=== PATIENT | male | born 1940 | race Caucasian/White ===

== ENCOUNTER → 2020-09-18 | Outpatient (CLI) | payer MEDICARE, BC | LOC: RAD 08:58 | DX: M19.012 Primary osteoarthritis, left shoulder (principal) ==

== ENCOUNTER 2020-11-18 11:42 | Emergency (ER) | payer MEDICARE, BC ==
[2020-11-18] MEDS ORDERED: NITROGLYCERIN0.4 M1 SL (12:00)
[2020-11-18] MEDS ORDERED: FERROUS SULFAT325 M4 PO (12:01)
[2020-11-18] MEDS ORDERED: FISH OIL1 IU PO (12:01)
[2020-11-18] MEDS ORDERED: BRILINTA90 MG PO (12:01)
[2020-11-18] MEDS ORDERED: ASPIRIN E.C. 8181 MG (12:01)
[2020-11-18] MEDS ORDERED: ATORVASTATIN CA40 MG PO (12:01)
[2020-11-18] MEDS ORDERED: PRINIVIL10 M1 PO (12:01)
[2020-11-18] MEDS ORDERED: MULTIPLE VITAMI1 TA1 PO (12:02)
[2020-11-18] MEDS ORDERED: METFORMIN HYD1000 MG PO (12:02)
[2020-11-18] MEDS ORDERED: LOPRESSOR 225 MG/TAB PO (12:03)
[2020-11-18] MEDS ORDERED: GOOD SENSE OMEP20 MG PO (12:03)
[2020-11-18] MEDS ORDERED: ACTOS 45MG45 MG/TAB PO (12:03)
[2020-11-18 12:31] LABS: POTASSIUM 4.3 mmol/L (3.5-5.1)
[2020-11-18 12:32] LABS: CALCIUM 8.8 mg/dL (8.3-10.5)
[2020-11-18 12:33] LABS: EOS # 0.1 (0.04-0.40); EOS % 0.9 % (0.0-4.0); HEMATOCRIT 35.2 % (42.0-52.0); HEMOGLOBIN 11.1 g/dL (13.5-18.0); LYMPH# 2.9 (1.50-4.00); MEAN CELL VOLUME 93 fl (78-100); MEAN CORPUSCULAR HEMOGLOBIN 29 pg (27-31); MEAN CORPUSCULAR HGB CONC 32 g/dL (33-37); MEAN PLATELET VOLUME 11.2 fl (7.4-10.4); MONO # 0.9 (0.20-0.80); NEU # 4.8 (1.40-6.50); PLATELET COUNT 231 K/mm3 (130-400); RED BLOOD COUNT 3.79 M/mm3 (4.20-5.60); RED CELL DISTRIBUTION WIDTH 13.8 % (11.5-14.5); TOTAL PROTEIN 6.3 g/dL (6.2-8.1); WHITE BLOOD COUNT 8.7 K/mm3 (4.8-10.8)
[2020-11-18 12:35] LABS: TOTAL BILIRUBIN 0.5 mg/dL (0.2-1.2)
[2020-11-18 12:58] LABS: TROPONIN-I 0.06 ng/mL (<0.030)
[2020-11-18 13:10] LABS: D-DIMER 1.96 mg/L FEU (0.15-0.50)
[2020-11-18 16:28] LABS: HEMATOCRIT 34.5 % (42.0-52.0); HEMOGLOBIN 10.9 g/dL (13.5-18.0); MEAN PLATELET VOLUME 10.5 fl (7.4-10.4); RED BLOOD COUNT 3.7 M/mm3 (4.20-5.60); RED CELL DISTRIBUTION WIDTH 13.6 % (11.5-14.5); WHITE BLOOD COUNT 7.2 K/mm3 (4.8-10.8)
[2020-11-18 16:30] LABS: PROTHROMBIN TIME 10.3 SECONDS (9.0-12.0)
[2020-11-18 16:31] VITALS: BP 137/53
== END 2020-11-18 16:30 | disposition short-term general hospital (02) ==
LOC: ED 11:42
PROVIDERS: Physician Assistant
DX: I21.3 ST elevation (STEMI) myocardial infarction of unspecified site (principal); I10 Essential (primary) hypertension; E11.9 Type 2 diabetes mellitus without complications; K21.9 Gastro-esophageal reflux disease without esophagitis; E78.5 Hyperlipidemia, unspecified; I25.10 Atherosclerotic heart disease of native coronary artery without angina pectoris; Z95.5 Presence of coronary angioplasty implant and graft; Z79.82 Long term (current) use of aspirin; Z79.84 Long term (current) use of oral hypoglycemic drugs
CPT/HCPCS: J1644; Q9967

== ENCOUNTER 2020-12-27 14:02 | Emergency (ER) | payer MEDICARE, BC ==
[~2020-12-27 14:02] MED LIST: ACTOS 45MG45 MG/TAB PO; ASPIRIN E.C. 8181 MG; ATORVASTATIN CA40 MG PO; BRILINTA90 MG PO; FERROUS SULFAT325 M4 PO; FISH OIL1 IU PO; GOOD SENSE OMEP20 MG PO; LOPRESSOR 225 MG/TAB PO; METFORMIN HYD1000 MG PO; MULTIPLE VITAMI1 TA1 PO; NITROGLYCERIN0.4 M1 SL; PRINIVIL10 M1 PO
[2020-12-27 14:36] LABS: EOS % 0.6 % (0.0-4.0); HEMATOCRIT 32.3 % (42.0-52.0); HEMOGLOBIN 10.1 g/dL (13.5-18.0); MEAN CELL VOLUME 94 fl (78-100); MEAN CORPUSCULAR HEMOGLOBIN 30 pg (27-31); MEAN CORPUSCULAR HGB CONC 31 g/dL (33-37); MEAN PLATELET VOLUME 9.8 fl (7.4-10.4); MONO # 0.5 (0.20-0.80); NEU # 5.1 (1.40-6.50); PLATELET COUNT 262 K/mm3 (130-400); RED BLOOD COUNT 3.42 M/mm3 (4.20-5.60); RED CELL DISTRIBUTION WIDTH 14.4 % (11.5-14.5); WHITE BLOOD COUNT 6.4 K/mm3 (4.8-10.8)
[2020-12-27 14:52] LABS: ALBUMIN 4.1 g/dL (3.4-4.8)
[2020-12-27 14:53] LABS: POTASSIUM 4.9 mmol/L (3.5-5.1)
[2020-12-27 14:54] LABS: CALCIUM 9.2 mg/dL (8.3-10.5)
[2020-12-27 14:55] LABS: TOTAL PROTEIN 6.9 g/dL (6.2-8.1)
[2020-12-27 14:57] LABS: TOTAL BILIRUBIN 0.4 mg/dL (0.2-1.2)
[2020-12-27 15:03] LABS: LYMPH# 0.7 (1.50-4.00)
[2020-12-27 15:04] LABS: PARTIAL THROMBOPLASTIN TIME 24.2 SECONDS (21.0-32.0); PROTHROMBIN TIME 10.7 SECONDS (9.0-12.0)
[2020-12-27] MEDS ORDERED: NORVASC 5MG5 MG/TAB PO (15:08)
[2020-12-27 15:10] LABS: TROPONIN-I 0.03 ng/mL (<0.030)
[2020-12-27] MEDS ORDERED: RYBELSUS3 MG PO (15:11)
[2020-12-27 16:23] VITALS: BP 141/67
== END 2020-12-27 16:20 | disposition home or self-care (01) ==
LOC: ED 14:02
PROVIDERS: Nurse Practitioner
DX: R10.13 Epigastric pain (principal); K30 Functional dyspepsia; I10 Essential (primary) hypertension; I25.10 Atherosclerotic heart disease of native coronary artery without angina pectoris; K21.9 Gastro-esophageal reflux disease without esophagitis; Z95.9 Presence of cardiac and vascular implant and graft, unspecified; Z79.02 Long term (current) use of antithrombotics/antiplatelets; Z79.82 Long term (current) use of aspirin

== ENCOUNTER 2021-02-17 13:00 | Outpatient (RCR) | payer MEDICARE, BC ==
[~2021-02-17 13:00] MED LIST changes: +NORVASC 5MG5 MG/TAB PO; +RYBELSUS3 MG PO
== END 2021-03-11 | disposition home or self-care (01) ==
LOC: CARDREHAB
DX: Z48.812 Encounter for surgical aftercare following surgery on the circulatory system (principal); I21.9 Acute myocardial infarction, unspecified; Z95.5 Presence of coronary angioplasty implant and graft

== ENCOUNTER → 2021-03-19 | Outpatient (CLI) | payer MEDICARE, BC | LOC: RAD 08:51 | DX: M19.012 Primary osteoarthritis, left shoulder (principal) ==

== ENCOUNTER 2022-04-01 17:12 | Observation (INO) | payer MEDICARE, BC ==
[~2022-04-01] VITALS: Ht 172.7 cm; Wt 80.5 kg
[~2022-04-01 17:12] MED LIST changes: -RYBELSUS3 MG PO; +RYBELSUS7 MG PO
[2022-04-01] MEDS ORDERED: CLOPIDOGREL75 M2 PO (17:25)
[2022-04-01 17:50] LABS: HEMATOCRIT 28.8 % (42.0-52.0); HEMOGLOBIN 9.3 g/dL (13.5-18.0); MEAN CELL VOLUME 96 fl (78-100); MEAN CORPUSCULAR HEMOGLOBIN 31 pg (27-31); MEAN CORPUSCULAR HGB CONC 32 g/dL (33-37); MEAN PLATELET VOLUME 9.9 fl (7.4-10.4); PLATELET COUNT 154 K/mm3 (130-400); RED CELL DISTRIBUTION WIDTH 14.2 % (11.5-14.5); WHITE BLOOD COUNT 8.5 K/mm3 (4.8-10.8)
[2022-04-01 18:10] LABS: ALBUMIN 3.3 g/dL (3.4-4.8); POTASSIUM 4.3 mmol/L (3.5-5.1)
[2022-04-01 18:11] LABS: SODIUM 134 mmol/L (136-145)
[2022-04-01 18:12] LABS: CALCIUM 8.3 mg/dL (8.3-10.5)
[2022-04-01 18:13] LABS: GLUCOSE 174 mg/dL (75-110); TOTAL PROTEIN 5.7 g/dL (6.2-8.1)
[2022-04-01 18:14] LABS: CARBON DIOXIDE 19 mmol/L (23-31)
[2022-04-01 18:15] LABS: TOTAL BILIRUBIN 0.8 mg/dL (0.2-1.2)
[2022-04-01 18:18] LABS: AST-SGOT 14 U/L (5-34)
[2022-04-01 18:19] LABS: ALT/SGPT 13 U/L (0-55)
[2022-04-01 18:23] LABS: D-DIMER 1.11 mg/L FEU (0.15-0.50)
[2022-04-01 18:26] LABS: TROPONIN-I < 0.030 ng/mL (<0.030)
[2022-04-01 18:30] LABS: LYMPHOCYTE 6 % (20-51); MONOCYTE 11 % (3-10); NEUTROPHILS 83 % (42-75)
[2022-04-01 19:39] LABS: URINE APPEARANCE CLEAR; URINE BILIRUBIN NEGATIVE (NEGATIVE); URINE BLOOD TRACE (NEGATIVE); URINE COLOR YELLOW; URINE GLUCOSE NEGATIVE (NEGATIVE); URINE KETONE NEGATIVE (NEGATIVE); URINE LEUKOCYTE ESTERASE NEGATIVE (NEGATIVE); URINE MUCUS PRESENT (NOT PRESENT); URINE NITRATE NEGATIVE (NEGATIVE); URINE PROTEIN(semi-quant) TRACE (NEGATIVE); URINE UROBILINOGEN NORMAL (NORMAL); URINE WBC 0-1 /hpf (0-3)
--- NOTE | 2022-04-01 20:30 | NUR ---
Patient admitted to room 203 from emergency department. Recently traveled by plane to [facility] then to [facility]. Also, driving to [place] in past 3 weeks. Reports feeling SOA, weak with loss of appetite. Requires observation for fluid resuscitation. Plan for labs and CT in the am. A&Ox4, RA, no c/o pain or discomfort. Removed IV from left hand. New 20 ga. INT to right FA. SBA with gait belt from bed to bathroom. Using urinal at night. Swallows pills whole with water. Eager to go home in AM. Resting well with eyes closed. Bed in lowest and locked position. Call light within reach. Telemetry started at 2230. IV fluids running at 100ml/hr.
[2022-04-01 20:53] VITALS: BP 108/59
[2022-04-01 21:01] VITALS: BP 108/59
[2022-04-02 02:00] VITALS: BP 161/67
[2022-04-02 06:08] VITALS: BP 148/65
--- NOTE | 2022-04-02 07:01 | NUR ---
Received report from MONICA Flores.
--- NOTE | 2022-04-02 07:43 | NUR ---
Patient A&Ox4. at bedside. Patient denies pain this AM. Assessment completed. IV to right forearm intact with NS at 100mL. 2+ edema to BLE, encouraged elevation of BLE. Patient states he is "ready to get out of here." Needs met. Fall precautions in place.
[2022-04-02 08:14] LABS: POTASSIUM 4.2 mmol/L (3.5-5.1)
[2022-04-02 08:15] LABS: CALCIUM 8.3 mg/dL (8.3-10.5)
--- NOTE | 2022-04-02 09:33 | NUR ---
JOVANY Campoverde notified of elevated temperature of 102.8.
[2022-04-02 09:44] VITALS: BP 110/60
[2022-04-02 12:49] LABS: POTASSIUM 4.2 mmol/L (3.5-5.1)
[2022-04-02] MEDS ORDERED: ZITHROMAX Z PA250 MG PO (14:23)
[2022-04-02] MEDS ORDERED: AMOXICILLIN 50500 MG PO (14:23)
[2022-04-02 14:38] VITALS: BP 95/58
--- NOTE | 2022-04-02 17:25 | NUR ---
Pt with frequent PVC on tele monitor then goes into wide complex ventricular rhythm and then returns to NSR. Strips printed and Carlos MANZO notified and shown strips. Pt remains resting in bed. Denies any symptoms, chest pain or SOB
[2022-04-02 18:02] VITALS: BP 116/68
[2022-04-02 21:30] VITALS: BP 113/62
[2022-04-03 06:06] VITALS: BP 128/63
--- NOTE | 2022-04-03 06:25 | NUR ---
NURSE NOTIFIED BY RES COUNSELOR THAT PATIENTS SATS WERE BELOW 90% ON ROOM AIR, NURSE ASSESSES PATIENT, HE IS ALERT AND ORIENTED, CRACKLES HEARD IN UPPER LOBES, SATS 85% ON ROOM AIR, PATIENT ASSISTED IN SITTING UP HIGHER IN BED, TAKES A COUPLE DEEP BREATHS AND COUGHS ON COMMAND, SATS RISE TO 91% AND HOVER AROUND 90%, WILL CONTINUE TO MONITOR CLOSELY, PATIENT DENIES ANY NEEDS/COMPLAINTS AT THIS TIME, RESTING COMFORTABLY IN BED, SIDE RAILS UP X 2, CALL LIGHT WITHIN REACH, BED ALARM ON
--- NOTE | 2022-04-03 07:00 | NUR ---
Received report from RICH William.
[2022-04-03 08:20] LABS: HEMATOCRIT 28.3 % (42.0-52.0); HEMOGLOBIN 9.2 g/dL (13.5-18.0); MEAN CELL VOLUME 96 fl (78-100); MEAN CORPUSCULAR HEMOGLOBIN 31 pg (27-31); MEAN CORPUSCULAR HGB CONC 33 g/dL (33-37); MEAN PLATELET VOLUME 10.2 fl (7.4-10.4); PLATELET COUNT 173 K/mm3 (130-400); RED BLOOD COUNT 2.94 M/mm3 (4.20-5.60); RED CELL DISTRIBUTION WIDTH 14.4 % (11.5-14.5); WHITE BLOOD COUNT 5.4 K/mm3 (4.8-10.8)
[2022-04-03 08:28] LABS: ALBUMIN 2.9 g/dL (3.4-4.8); POTASSIUM 3.8 mmol/L (3.5-5.1)
[2022-04-03 08:30] LABS: TOTAL PROTEIN 5.2 g/dL (6.2-8.1)
[2022-04-03 08:32] LABS: TOTAL BILIRUBIN 0.5 mg/dL (0.2-1.2)
--- NOTE | 2022-04-03 08:50 | NUR ---
Patient A&Ox4. Denies pain. Reports getting "the best sleep he has in a long time" last night. Assessment completed. +2 edema continues to BLE. Fine crackles noted to right upper lobe. Remains in NSR on telemetry. Fever of 100.8 this AM. Tylenol provided with AM medications. Needs met. Fall precautions in place.
--- NOTE | 2022-04-03 09:40 | NUR ---
Sonia Randle APRN notifed of hypotension and low O2 saturation of 89%. Pt started on 1.5 L O2 via NC O2 saturation now 95%.
--- NOTE | 2022-04-03 10:00 | NUR ---
Pt complains of chronic pain to right shoulder. New order obtained and initiated.
[2022-04-03 10:04] LABS: LYMPHOCYTE 5 % (20-51); MONOCYTE 8 % (3-10); NEUTROPHILS 87 % (42-75); NUCLEATED RED BLOOD CELL 1 (0-6)
[2022-04-03 10:06] LABS: OVALOCYTES 1+
[2022-04-03 10:08] VITALS: BP 90/46
[2022-04-03 11:53] VITALS: BP 96/46
[2022-04-03 13:07] VITALS: BP 92/48
--- NOTE | 2022-04-03 14:27 | NUR ---
O2 saturation ranging between 95-97% on room air. Patient maintained a 94% on room air while walking the halls with staff. Patient off O2 via NC, will continue to monitor. Sonia Randle APRN aware.
[2022-04-03 14:29] VITALS: BP 107/59
--- NOTE | 2022-04-03 16:00 | NUR ---
Discharge instructions provided to patient and . Pt and verbalized understanding. RX sent to preferred pharmacy. Vital signs WNL. Patient A&Ox4. Denies pain, dizziness, SOA, N/V. Patient assisted by staff to POV via W/C without incident. All personal belongings taken with patient.
[2022-04-03 16:10] VITALS: BP 98/58
== END 2022-04-03 16:10 | disposition home or self-care (01) ==
LOC: ED 17:12 → MED/SURG 20:22
PROVIDERS: Physician Assistant; ADMIT Physician Assistant
DX: J18.1 Lobar pneumonia, unspecified organism (principal); I10 Essential (primary) hypertension; E11.69 Type 2 diabetes mellitus with other specified complication; N28.9 Disorder of kidney and ureter, unspecified; R79.1 Abnormal coagulation profile; Z79.82 Long term (current) use of aspirin; Z79.02 Long term (current) use of antithrombotics/antiplatelets; Z79.84 Long term (current) use of oral hypoglycemic drugs
CPT/HCPCS: G0378; J0456; J0696; J7030; J7050; Q9967

== ENCOUNTER → 2022-05-25 | Outpatient (CLI) | payer MEDICARE, BC ==
[~2022-05-25] MED LIST changes: +AMOXICILLIN 50500 MG PO; +CLOPIDOGREL75 M2 PO; +ZITHROMAX Z PA250 MG PO
== END ==
LOC: PT 10:25
DX: M19.012 Primary osteoarthritis, left shoulder (principal)

== ENCOUNTER 2022-06-01 10:56 | Outpatient (RCR) | payer MEDICARE, BC | END 2022-07-01 | disposition home or self-care (01) | LOC: PT | DX: M19.012 Primary osteoarthritis, left shoulder (principal) ==

== ENCOUNTER 2022-08-03 08:00 | Outpatient (RCR) | payer MEDICARE, BC | END 2022-08-31 10:57 | disposition home or self-care (01) | LOC: PT 08:00 | DX: Z96.612 Presence of left artificial shoulder joint (principal) ==